=== PATIENT | female | born 1995 | race American Indian/Alaskan Native ===

== ENCOUNTER 2024-09-29 10:33 | Emergency (ER) | payer MEDICAID ==
[~2024-09-29] VITALS: Ht 162.6 cm; Wt 104.5 kg
[2024-09-29 10:47] VITALS: TEMP 97.9
[2024-09-29] MEDS: ACETAMINOPHEN 500 MG TABLET PO ONE (12:36)
[2024-09-29] MEDS: IBUPROFEN 400 MG TABLET PO ONE (12:36)
[2024-09-29 13:00] VITALS: BP 122/74; PULSE 66; RESP 16; O2SAT 97
== END 2024-09-29 13:51 | disposition home or self-care (01) ==
LOC: EMS 10:47
DX: M23.92 Unspecified internal derangement of left knee (principal)
CPT/HCPCS: 99283